=== PATIENT | female | born 1960 | race Hispanic/Latino ===

== ENCOUNTER 2021-03-01 23:14 | Emergency (ER) | payer MEDICARE ==
[~2021-03-01] VITALS: Ht 162.6 cm; Wt 77.1 kg
[2021-03-02 01:20] VITALS: BP 108/62
== END 2021-03-02 01:22 | disposition home or self-care (01) ==
LOC: FSED 03-02 00:20
DX: R51.9 Headache, unspecified (principal); R00.2 Palpitations; E11.65 Type 2 diabetes mellitus with hyperglycemia; E11.40 Type 2 diabetes mellitus with diabetic neuropathy, unspecified; I10 Essential (primary) hypertension; K21.9 Gastro-esophageal reflux disease without esophagitis
CPT/HCPCS: 80053; 82553; 84484; 85025; 93005; 99284